=== PATIENT | female | born 1960 | race Caucasian/White ===

== ENCOUNTER → 2024-12-20 12:46 | Outpatient (BNVA) | payer MEDICARE, OTHER, SELFPAY | PROVIDERS: Visit Provider Student in an Organized Health Care Education/Training Program | DX: Z12.11 Encounter for screening for malignant neoplasm of colon (principal) | CPT/HCPCS: 99204 ==

== ENCOUNTER 2024-12-24 07:13 | Day surgery (SDC) | payer MEDICARE, OTHER, SELFPAY ==
[2024-12-24 07:29] VITALS: BMI 24.7
--- NOTE | 2024-12-24 07:47 | ANES.PREANE2 ---
Pre-Anesthetic Assessment Height/Weight: Height 1.73 m Weight 73.936 kg Preop Diagnosis: Screening Operation Date: 12/24/24 08:30 Proposed Procedures p Colonoscopy 14510 G0105 Z12.11(Not Applicable) - Nemesio Hess MD Was Beta Violetta taken within 24 hours: N/A Was Clonidine taken within 24 hours: N/A Last intake: Intake Last Liquid Date 12/23/24 Last Liquid Time 18:30 Last Solid Date 12/22/24 Last Solid Time 18:30 Social No alcohol and No tobacco Exam alert, oriented x 3, clear to auscultation bilaterally and regular rate & rhythm Airway Submandibular: within normal limits Cervical ROM: within normal limits Mallampati: Class II Dentition: full History/ROS No significant history except as noted and No significant complaints Pulmonary None reported CV/HEM Hypertension None reported Hepatic None reported GI Titi. Denies GERD Metabolic Diabetes Mellitus Musc/skel Osteoarthritis/DJD Neuropsych None reported Anesthetic Plan ASA status: 2 Anesthesia: Anesthesia Evaluation and MAC Risk of > 500 ml blood loss (7ml/kg in children): No Medications/Allergies Home Medications ?Medication ?Instructions ?Recorded ?Confirmed ?Last Taken ?Type B6 35 mg-levomefolate 3 1 cap PO DAILY 12/20/24 12/20/24 12/20/24 History mg-mecobalam 2 [id number] capsule del rel (EB-N6 DR) aspirin 81 mg tablet 81 mg PO DAILY 12/20/24 12/20/24 12/20/24 History cinnamon bark 500 mg capsule 500 mg PO DAILY 12/20/24 12/20/24 12/20/24 History (Cinnamon) losartan 50 mg-hydrochlorothiazide 1 tab PO QDAY 12/20/24 12/20/24 12/20/24 History 12.5 mg tablet methenamine hippurate 1 gram tablet 1 g PO BID 12/20/24 12/20/24 12/20/24 History multivitamin 1 tab PO DAILY 12/20/24 12/20/24 12/20/24 History rosuvastatin 5 mg tablet 5 mg PO QDAY 12/20/24 12/20/24 12/20/24 History tirzepatide 10 mg/0.5 mL 10 mg SUBCUT .WEEKLY 12/20/24 12/20/24 12/20/24 History subcutaneous pen injector (Mounjaro) Allergies Allergy/AdvReac Type Severity Reaction Status Date / Time dulaglutide (From [facility]) Allergy Intermediate nausea, Verified 12/20/24 13:20 stomach cramps iodine Allergy Mild swelling Verified 12/20/24 13:20 metformin Allergy Mild nausea Verified 12/20/24 13:20 soybean Allergy Mild swelling Verified 12/20/24 13:20 Sulfa (Sulfonamide Allergy Mild nausea Verified 12/20/24 13:20 Antibiotics) Penicillins AdvReac Severe swelling Verified 12/20/24 13:20 soy sauce Allergy Severe ALGY-Anaphy Uncoded 12/20/24 13:20 laxis flourescene Allergy Mild hives Uncoded 12/20/24 13:20 Current Medications Generic Name Dose Route Start Last Admin Trade Name Freq PRN Reason Stop Dose Admin Sodium Chloride 1,000 mls @ 15 mls/hr 12/24/24 07:19 12/24/24 07:32 Sodium Chloride 0.9% IV 12/25/24 07:18 15 mls/hr .Q24H PRN Administration COLONOSCOPY FLUIDS PFSH Anesthesia Social History Smoking and tobacco/nicotine status: never used tobacco/nicotine
--- NOTE | 2024-12-24 07:53 | W.PM.OPSUD ---
Surgery/Procedure H&P Update DATE OF PROCEDURE: December 24, 2024 DATE H&P PERFORMED: 12/20/24 H&P UPDATE INFORMATION: I have reviewed H&P completed within last 30 days, I have examined patient prior to procedure, No changes to prior documentation and Risks and benefits of the procedure reviewed PREOP DIAGNOSIS: Screening PLANNED PROCEDURE: Operation Date: 12/24/24 08:30 Proposed Procedures p Colonoscopy 27881 G0105 Z12.11(Not Applicable) - Nemesio Hess MD
[2024-12-24 08:19] VITALS: BP 103/69; PULSE 81; RESP 20; TEMP 36.2; O2SAT 95
[2024-12-24 08:29] VITALS: BP 111/70; PULSE 80; RESP 18; O2SAT 100
--- NOTE | 2024-12-24 08:50 | ANE.PACU2 ---
Inpatient post-anesthesia follow up: Airway intact: Yes Vital signs: Temperature 97.1 F Pulse Rate 80 Respiratory Rate 18 Blood Pressure 111/70 Pulse Oximetry 100 Oxygen Delivery Me thod Room Air Oxygen Flow Rate Fraction of Inspir ed Oxygen Hydration adequate: Yes Nausea and vomiting: No Pain level: 1 Mental status: Baseline
== END 2024-12-24 08:50 | disposition home or self-care (01) ==
PROVIDERS: PCP Family Medicine; Visit Provider Student in an Organized Health Care Education/Training Program
PROC: 0DJD8ZZ Inspection of Lower Intestinal Tract, Via Natural or Artificial Opening Endoscopic (ICD-10-PCS; CPT 45378; principal; 2024-12-24 08:30)
DX: Z12.11 Encounter for screening for malignant neoplasm of colon (principal); K64.4 Residual hemorrhoidal skin tags; D12.0 Benign neoplasm of cecum; K62.0 Anal polyp; I10 Essential (primary) hypertension; E11.9 Type 2 diabetes mellitus without complications; Z79.82 Long term (current) use of aspirin
CPT/HCPCS: 36416; 45385; 82962; 88305; J2704; J7030

== ENCOUNTER → 2025-01-07 09:55 | Outpatient (BNVA) | payer MEDICARE, OTHER, SELFPAY | PROVIDERS: PCP Family Medicine; Visit Provider Student in an Organized Health Care Education/Training Program | DX: Z51.89 Encounter for other specified aftercare (principal) | CPT/HCPCS: 99213 ==